=== PATIENT | female | born 1985 | race Two or more races ===

== ENCOUNTER 2020-04-09 17:58 | Observation (INO) | payer MEDICAID ==
[~2020-04-09] VITALS: Ht 160 cm; Wt 66.7 kg
[~2020-04-09 17:58] MED LIST: PREN-96 PO
[2020-04-09 19:09] LABS: Urine Bacteria NONE SEEN /hpf (None Seen); Urine Blood 1+ /uL (Negative); Urine Mucus FEW (None Seen); Urine Specific Gravity 1.009 (1.001-1.035); Urine WBC 36 /hpf (0 - 5)
== END 2020-04-09 19:30 | disposition home or self-care (01) ==
LOC: LDRP 17:58
PROVIDERS: ADMIT Obstetrics & Gynecology; ATTEND Obstetrics & Gynecology
DX: O62.9 Abnormality of forces of labor, unspecified (principal); O46.93 Antepartum hemorrhage, unspecified, third trimester; O36.8130 Decreased fetal movements, third trimester, not applicable or unspecified; Z3A.39 39 weeks gestation of pregnancy
CPT/HCPCS: 59025; 76818; 81001; 81002; G0378

== ENCOUNTER 2020-04-10 06:10 | Inpatient (IN) | payer MEDICAID ==
[~2020-04-10] VITALS: Ht 160 cm; Wt 66.8 kg
[2020-04-10] MEDS ORDERED: LACTATED RINGER'S 1,000 ML IV SCH (06:29)
[2020-04-10] MEDS ORDERED: LACT. RINGERS/OXYTOCIN 20UNITS 1,000 ML IV SCH ×2 (06:29→09:52)
[2020-04-10] MEDS ORDERED: WITCH HAZEL-GLYCERIN PAD TOP PRN ×2 (06:30→06:45)
[2020-04-10] MEDS ORDERED: PHISODERM TOP SOLN 240ML BTL TOP PRN ×2 (06:30→06:45)
[2020-04-10] MEDS ORDERED: LIDOCAINE 2%HCL (LOCAL ANESTH.) INJ 20ML MDV ID ONE (06:30)
[2020-04-10] MEDS ORDERED: NALBUPHINE HCL 10 MG/1ml INJECTION IV PRN (06:30)
[2020-04-10] MEDS ORDERED: PENICILLIN G POT 5MIL/D5 50ML 50 ML IV ONE (06:30)
[2020-04-10] MEDS ORDERED: DERMOPLAST 60ML BOTTLE TOP PRN (06:30)
[2020-04-10] MEDS ORDERED: METHYLERGONOVINE MALEATE 0.2 MG/ML AMP IM PRN (06:45)
[2020-04-10] MEDS ORDERED: CARBOPROST TROMETHAMINE 250 MCG/1ML VIAL IM PRN (06:45)
[2020-04-10] MEDS ORDERED: LACT. RINGERS/OXYTOCIN 20UNITS 1,000 ML IV PRN ×2 (07:00)
[2020-04-10 07:30] LABS: Basophils # (auto) 0.1 10 ^3/uL (0-0.2); Basophils % (auto) 0.6 % (0.0-2.0); Eosinophils # (auto) 0.1 10 ^3/uL (0-0.8); Eosinophils % (auto) 1.1 % (0.0-7.0); Hematocrit 36.6 % (36.0-46.0); Hemoglobin 12.5 g/dL (12.2-16.2); Lymphocytes # (auto) 1.1 10 ^3/uL (0.4-5.4); Lymphocytes % (auto) 13.5 % (10.0-50.0); Mean Corpuscular Hemoglobin 32.4 pg (28.0-32.0); Mean Corpuscular Hgb Conc. 34.1 g/dL (32.0-36.0); Mean Corpuscular Volume 95.2 fL (80.0-100.0); Monocytes # (auto) 0.6 10 ^3/uL (0-1.3); Monocytes % (auto) 7.7 % (0.0-12.0); Neutrophils # (auto) 6.3 10 ^3/uL (1.6-8.6); Neutrophils % (auto) 77.1 % (37.0-80.0); Nucleated Red Blood Cells % 0.2 %; Platelet Count (auto) 227 10^3/uL (140-450); Red Blood Cells 3.84 10^6/uL (4.0-5.20); Red Cell Distribution Width 13.7 % (11.8-14.3); White Blood Cell 8.2 10^3/uL (4.4-10.8)
[2020-04-10 07:36] LABS: Urine Bacteria NONE SEEN /hpf (None Seen); Urine Blood 1+ /uL (Negative); Urine Specific Gravity 1.012 (1.001-1.035); Urine WBC 6 /hpf (0 - 5)
[2020-04-10 07:44] LABS: INR 0.96 (0.9-1.15); Partial Thromboplastin Time 25.5 sec (23.0-31.2)
[2020-04-10 07:46] LABS: Albumin 2.8 g/dL (3.4-5.0); Calcium 8.7 mg/dL (8.5-10.1); Potassium 3.5 mmol/L (3.5-5.1)
[2020-04-10 07:47] LABS: Alcohol, Urine < 3.0 mg/dL (0-10); Amphetamine Screen, Urine NEGATIVE (NEGATIVE); Barbiturate Scree,Urine NEGATIVE (NEGATIVE); Benzodiazephine Screen, Urine NEGATIVE (NEGATIVE); Cannabinoid Screen, Urine NEGATIVE (NEGATIVE); Cocaine Screen, Urine NEGATIVE (NEGATIVE); Opiate Scree,Urine NEGATIVE (NEGATIVE); Phencyclidine Screen, Urine NEGATIVE (NEGATIVE)
[2020-04-10 07:50] LABS: BUN/Creatinine Ratio 16.1; Bilirubin, Total 0.7 mg/dL (0.2-1.0); Total Protein 6.6 g/dL (6.4-8.2)
[2020-04-10] MEDS ORDERED: ACETAMINOPHEN 325 MG TAB PO PRN (08:15)
[2020-04-10] MEDS ORDERED: IBUPROFEN 600 MG TAB PO PRN (08:15)
[2020-04-10] MEDS ORDERED: miSOPROStol 100 mcg TAB ONE (08:19)
[2020-04-10] MEDS ORDERED: miSOPROStol 100 mcg TAB SL ONE (09:30)
[2020-04-10] MEDS ORDERED: miSOPROStol 100 mcg TAB PR ONE (09:30)
[2020-04-10] MEDS ORDERED: ONDANSETRON HCL 4 MG/2 ML VIAL IV PRN (09:45)
[2020-04-10 14:30] VITALS: BP 96/56
--- NOTE | 2020-04-10 15:24 | NUR ---
Received order from Dr. Yoder to remove duarte catheter and PT may ambulate.
--- NOTE | 2020-04-10 15:45 | NUR ---
Duarte catheter dc'd Order to discontinue duarte catheter. Duarte dc'd with clean technique following deflation of balloon. Patient tolerated well with no complaints of pain. Continue care.
[2020-04-10 19:00] VITALS: BP 104/65
[2020-04-10 23:00] VITALS: BP 118/67
[2020-04-11 03:00] VITALS: BP 105/55
[2020-04-11 05:06] LABS: RPR Non Reactive (Non Reactive)
[2020-04-11 07:10] VITALS: BP 94/56
[2020-04-11 11:00] VITALS: BP 101/58
[2020-04-11 15:00] VITALS: BP 106/57
--- NOTE | 2020-04-11 15:01 | NUR ---
Discharge: Discharge instructions given as ordered. [facility], [facility] handout from [facility], [facility] provide and discussed in detail with patient. Pt encouraged to follow up with maternal health 04/[address] Yoder. All questions and concerns addressed. Patient verbalized understanding. Medication reconciliation completed and copy given to patient. All required/requested vaccines given and copies of vaccinations given to patient. Patient encouraged to prepare to depart unit. Patient states her will be able to pick her up between 4 and 4:30pm
--- NOTE | 2020-04-11 15:28 | NUR ---
Iv removed, catheter intact, pressure dressing applied.
--- NOTE | 2020-04-11 16:50 | NUR ---
Discharge: Patient ambulated off the unit to vehicle with all personal belongings, accompanied by staff and family member. No distress noted at time of departure, no adverse changes in status since initial assessment.
== END 2020-04-11 16:50 | disposition home or self-care (01) | DRG 560 ==
LOC: LDRP 06:10 → OBSVTOIN 06:10 → LDRP 08:12
PROVIDERS: ADMIT Obstetrics & Gynecology; ATTEND Obstetrics & Gynecology
PROC: 10E0XZZ Delivery of Products of Conception, External Approach (ICD-10-PCS; principal; 2020-04-10)
DX: O69.81X0 Labor and delivery complicated by cord around neck, without compression, not applicable or unspecified (principal); Z37.0 Single live birth; Z3A.39 39 weeks gestation of pregnancy; O62.3 Precipitate labor
CPT/HCPCS: 36415; 59025; 59409; 76818; 80053; 80307; 81001; 81002; 84112; 85025; 85610; 85730; 86592; 86850; 86870; 86900; 86901; 94760; 96360; 96361; 96365; 96366; 96372; 96374; G0378; J2405; J2590

== ENCOUNTER 2022-02-06 03:00 | Inpatient (IN) | payer MEDICAID ==
[~2022-02-06] VITALS: Ht 160 cm; Wt 64.9 kg
[2022-02-06] MEDS ORDERED: PROMETHAZINE HCL 25 MG/ML 1ML IV PRN (06:00)
[2022-02-06] MEDS ORDERED: BUTORPHANOL TARTRATE 2 MG/1 ML VIAL IV PRN ×2 (06:00)
[2022-02-06] MEDS ORDERED: PENICILLIN G POT 5MIL/D5 50ML 50 ML IV ONE (06:00)
[2022-02-06] MEDS ORDERED: LIDOCAINE 2%HCL (LOCAL ANESTH.) INJ 10ml MDV IJ PRN (06:00)
[2022-02-06] MEDS ORDERED: PHISODERM TOP SOLN 240ML BTL TOP PRN (06:00)
[2022-02-06] MEDS ORDERED: WITCH HAZEL-GLYCERIN PAD TOP PRN (06:00)
[2022-02-06] MEDS ORDERED: DERMOPLAST 60ML BOTTLE TOP PRN (06:00)
[2022-02-06] MEDS ORDERED: miSOPROStol 50 MCG per PRE-CUT 1/2 TAB PO PRN (06:00)
[2022-02-06 06:21] LABS: Urine Bacteria NONE SEEN /hpf (None Seen); Urine Blood TRACE /uL (Negative); Urine Specific Gravity 1.003 (1.001-1.035); Urine WBC 4 /hpf (0 - 5)
[2022-02-06 06:25] LABS: Alcohol, Urine < 3.0 mg/dL (0-10); Amphetamine Screen, Urine NEGATIVE (NEGATIVE); Barbiturate Scree,Urine NEGATIVE (NEGATIVE); Benzodiazephine Screen, Urine NEGATIVE (NEGATIVE); Cannabinoid Screen, Urine NEGATIVE (NEGATIVE); Cocaine Screen, Urine NEGATIVE (NEGATIVE); Opiate Scree,Urine NEGATIVE (NEGATIVE); Phencyclidine Screen, Urine NEGATIVE (NEGATIVE)
[2022-02-06] MEDS: LACTATED RINGER'S 1,000 ML IV SCH ×3 (06:36→22:00)
[2022-02-06 07:07] LABS: Basophils # (auto) 0 10 ^3/uL (0-0.2); Basophils % (auto) 0.2 % (0.0-2.0); Eosinophils # (auto) 0.1 10 ^3/uL (0-0.8); Eosinophils % (auto) 0.9 % (0.0-7.0); Hematocrit 36.6 % (36.0-46.0); Hemoglobin 12.7 g/dL (12.2-16.2); Lymphocytes # (auto) 1.2 10 ^3/uL (0.4-5.4); Lymphocytes % (auto) 13.4 % (10.0-50.0); Mean Corpuscular Hemoglobin 33.8 pg (28.0-32.0); Mean Corpuscular Hgb Conc. 34.8 g/dL (32.0-36.0); Monocytes # (auto) 0.8 10 ^3/uL (0-1.3); Monocytes % (auto) 8.2 % (0.0-12.0); Neutrophils # (auto) 7.1 10 ^3/uL (1.6-8.6); Neutrophils % (auto) 77.3 % (37.0-80.0); Red Blood Cells 3.77 10^6/uL (4.0-5.20); Red Cell Distribution Width 13.8 % (11.8-14.3); White Blood Cell 9.2 10^3/uL (4.4-10.8)
[2022-02-06] MEDS ORDERED: LACT. RINGERS/OXYTOCIN 20UNITS 1,000 ML IV SCH (07:15)
[2022-02-06] MEDS ORDERED: METHYLERGONOVINE MALEATE 0.2 MG/ML AMP IM PRN (07:15)
[2022-02-06] MEDS ORDERED: CARBOPROST TROMETHAMINE 250 MCG/1ML VIAL IM PRN (07:15)
[2022-02-06] MEDS ORDERED: TERBUTALINE SULFATE 1 MG/ML 1ML VIAL SC PRN (07:15)
[2022-02-06] MEDS ORDERED: miSOPROStol 100 mcg TAB SL PRN (07:15)
[2022-02-06] MEDS ORDERED: miSOPROStol 100 mcg TAB PR PRN (07:15)
[2022-02-06] MEDS ORDERED: LACT. RINGERS/OXYTOCIN 20UNITS 500 ML IV ONE ×2 (07:15→07:45)
[2022-02-06 07:20] LABS: Albumin 2.7 g/dL (3.4-5.0); BUN/Creatinine Ratio 9.1; Calcium 8.5 mg/dL (8.5-10.1); Potassium 3.5 mmol/L (3.5-5.1)
[2022-02-06 07:26] LABS: Bilirubin, Total 0.7 mg/dL (0.2-1.0); Total Protein 6.5 g/dL (6.4-8.2)
[2022-02-06 07:30] LABS: INR 0.98 (0.9-1.15); Partial Thromboplastin Time 25.3 sec (23.6-33.0)
[2022-02-06] MEDS ORDERED: PENICILLIN G POTASSIUM 2,500,000 UNITS in D5W 5% 50 ML IV SCH (10:00)
[2022-02-06] MEDS: DIPHENOXYLATE W/ATROPINE 2.5 MG TAB PO SCH ×2 (10:00→22:00)
[2022-02-06] MEDS ORDERED: ACETAMINOPHEN 325 MG TAB PO PRN (13:00)
[2022-02-06] MEDS ORDERED: ONDANSETRON ODT 4 MG TAB PO PRN (13:00)
[2022-02-06] MEDS ORDERED: IBUPROFEN 600 MG TAB PO PRN (13:00)
[2022-02-06] MEDS ORDERED: RHO (D) IMMUNE GLOBULIN 300 MCG INJ IM ONE (13:30)
[2022-02-06] MEDS: ceFAZolin 1GM/50ML 50 ML IV SCH ×2 (13:37→22:04)
[2022-02-06 15:28] VITALS: BP 95/60
[2022-02-06 19:30] VITALS: BP 90/57
[2022-02-06 23:00] VITALS: BP 102/64
[2022-02-07 03:00] VITALS: BP 97/56
[2022-02-07] MEDS: ceFAZolin 1GM/50ML 50 ML IV SCH (05:35)
[2022-02-07] MEDS: LACTATED RINGER'S 1,000 ML IV SCH (06:00)
[2022-02-07 06:59] VITALS: BP 102/59
[2022-02-07 08:06] LABS: RPR Non Reactive (Non Reactive)
[2022-02-07] MEDS: DIPHENOXYLATE W/ATROPINE 2.5 MG TAB PO SCH (10:00)
[2022-02-07 11:02] VITALS: BP 104/66
== END 2022-02-07 13:47 | disposition home or self-care (01) | DRG 560 ==
LOC: LDRP 03:00 → OBSVTOIN 05:45 → LDRP 06:00
PROVIDERS: ADMIT Obstetrics & Gynecology; ATTEND Obstetrics & Gynecology
PROC: 10E0XZZ Delivery of Products of Conception, External Approach (ICD-10-PCS; principal; 2022-02-06)
PROC: 3E0P7VZ Introduction of Hormone into Female Reproductive, Via Natural or Artificial Opening (ICD-10-PCS; 2022-02-06)
PROC: 3E0DXGC Introduction of Other Therapeutic Substance into Mouth and Pharynx, External Approach (ICD-10-PCS; 2022-02-06)
DX: O26.893 Other specified pregnancy related conditions, third trimester (principal); Z37.0 Single live birth; Z20.822 Contact with and (suspected) exposure to COVID-19; Z3A.37 37 weeks gestation of pregnancy; Z67.41 Type O blood, Rh negative
CPT/HCPCS: 36415; 59025; 59409; 76815; 80053; 80307; 81001; 81002; 84112; 85025; 85610; 85730; 86592; 86850; 86900; 86901; 86920; 90384; 94760; 96360; 96361; 96365; 96366; 96372; G0378; J0690; J2001; J2540; J2590; J7060

== ENCOUNTER 2024-09-17 14:25 | Inpatient (IN) | payer MEDICAID ==
[~2024-09-17] VITALS: Ht 160 cm; Wt 59.9 kg
[2024-09-17] MEDS ORDERED: PENICILLIN G POT 5MIL/D5 50ML 50 ML IV ONE (15:00)
[2024-09-17] MEDS ORDERED: LIDOCAINE 2%HCL (LOCAL ANESTH.) INJ 20ML MDV IJ PRN ×2 (15:00→20:15)
[2024-09-17] MEDS ORDERED: PHISODERM TOP SOLN 240ML BTL TOP PRN (15:00)
[2024-09-17] MEDS ORDERED: DERMOPLAST 60ML BOTTLE TOP PRN (15:00)
[2024-09-17] MEDS ORDERED: WITCH HAZEL-GLYCERIN PAD TOP PRN (15:00)
--- NOTE | 2024-09-17 15:34 | DVH ---
BIOPHYSICAL PROFILE HISTORY: presentation Comparison Study: None TECHNIQUE: Multiple real-time grayscale sonographic images through the gravid uterus of the fetus wi th duplex Doppler color flow and M-mode spectral analysis FINDINGS/IMPRESSION: Single live fetus in cephalic presentation. heart rate 142 beats per minute.
[2024-09-17 17:08] LABS: Basophils # (auto) 0 10 ^3/uL (0-0.2); Basophils % (auto) 0.5 % (0.0-2.0); Eosinophils # (auto) 0.1 10 ^3/uL (0-0.8); Eosinophils % (auto) 1.2 % (0.0-7.0); Hematocrit 34.3 % (36.0-46.0); Hemoglobin 11.5 g/dL (12.2-16.2); Lymphocytes % (auto) 11.5 % (10.0-50.0); Mean Corpuscular Hemoglobin 30.8 pg (28.0-32.0); Mean Corpuscular Hgb Conc. 33.4 g/dL (32.0-36.0); Mean Corpuscular Volume 92.2 fL (80.0-100.0); Monocytes # (auto) 1.1 10 ^3/uL (0-1.3); Monocytes % (auto) 12.7 % (0.0-12.0); Neutrophils # (auto) 6.2 10 ^3/uL (1.6-8.6); Neutrophils % (auto) 74.1 % (37.0-80.0); Nucleated Red Blood Cells % 0.1 %; Platelet Count (auto) 291 10^3/uL (140-450); Red Blood Cells 3.72 10^6/uL (4.0-5.20); Red Cell Distribution Width 14.8 % (11.8-14.3); White Blood Cell 8.4 10^3/uL (4.4-10.8)
[2024-09-17 17:09] LABS: Urine Bacteria None Seen /hpf (None Seen)
[2024-09-17 17:23] LABS: INR 0.92 (0.9-1.15); Partial Thromboplastin Time 25.7 SEC (24.5-34.5); Prothrombin Time 9.8 sec (9.3-11.8)
[2024-09-17 17:26] LABS: Alanine Aminotransferase < 9 U/L (7-40); Albumin 3.8 g/dL (3.2-4.8); Alkaline Phosphatase 831 U/L (46-116); Anion Gap 11 (5-15); Aspartate Aminotransferase 13 U/L (13-40); BUN/Creatinine Ratio 17.5 (10.0-20.0); Bilirubin, Total 0.6 mg/dL (0.2-1.0); Blood Urea Nitrogen 10 mg/dL (9-23); Carbon Dioxide 20 mmol/L (20-31); Chloride 108 mmol/L (98-107); Glucose 87 mg/dL (74-106); Potassium 3.7 mmol/L (3.5-5.1); Sodium 139 mmol/L (136-145); Total Protein 6.1 g/dL (5.7-8.2)
[2024-09-17 17:27] LABS: Calcium 10.7 mg/dL (8.7-10.4)
[2024-09-17 17:29] LABS: Urine Blood Negative /uL (Negative); Urine Budding Yeast OCCASIONAL /hpf (None Seen); Urine Clarity Clear (Clear); Urine Color Light-Yellow (Yellow); Urine Protein, UAD Negative (Negative); Urine Specific Gravity 1.008 (1.001-1.035); Urine Squamous Epithelial Cell FEW /hpf (<5); Urine Urobilinogen Normal (Negative); Urine WBC 29 /HPF (0-5); Urine WBC Clumps PRESENT /hpf (None Seen); Urine pH 6.5 (5.0-9.0)
[2024-09-17 17:53] LABS: Amphetamine Screen, Urine Neg (NEGATIVE); Barbiturate Scree,Urine Neg (NEGATIVE); Benzodiazephine Screen, Urine Neg (NEGATIVE); Cannabinoid Screen, Urine Neg (NEGATIVE); Cocaine Screen, Urine Neg (NEGATIVE); Opiate Scree,Urine Neg (NEGATIVE); Phencyclidine Screen, Urine Neg (NEGATIVE)
[2024-09-17] MEDS ORDERED: PENICILLIN G POTASSIUM 2,500,000 UNITS in D5W 5% 50 ML IV SCH (19:00)
--- NOTE | 2024-09-17 19:33 | DVH ---
EXAM: US OB ULTRASOUND COMP GTR 14 WKS CLINICAL HISTORY: low NATY, EFW COMPARISON: [Comparison] TECHNIQUE: Grayscale, color-flow Doppler, and spectral Doppler ultrasound of the pelvis is performed by transabdominal technique. Findings: Single live intrauterine in vertex presentation with heart rate of 148 bpm. Cervical os appears closed and measures 4.4 cm in length. Placenta is anterior in location without ev idence of previa or abruption. Limited evaluation of anatomy. Estimated gestational age 32 weeks 3 days based on parameters which include biparietal diameter 7.9 cm, head circumference 29.9 cm, abdominal circumference 30.1 cm, and femur length 5.[address] ratios within normal limits. Estimated weight 2062 g (4 lbs 9 oz). Amniotic fluid is decreased with NATY 2.5 cm and MVP 1.4 cm. Impression: 1. Single live intrauterine in vertex presentation with heart rate of 148 bpm. 2. Estimated gestational age 32 weeks 3 days with estimated date of confinement 11/09/2024. 3. Oligohydramnios. NATY 2.5 cm and MVP 1.4 cm
[2024-09-17] MEDS ORDERED: miSOPROStol 50 MCG per PRE-CUT 1/2 TAB PO PRN (20:15)
[2024-09-17] MEDS ORDERED: NALBUPHINE HCL 10 MG/1ml INJECTION IV PRN (20:15)
--- NOTE | 2024-09-17 20:26 | DVHHP2 ---
OB CC & HPI Date Date of Admission: Sep 17, 2024 Patient Identification: : 10 Para: 7 EDC: Oct 14, 2024 Chief Complaints: Reason for admission: induction of labor Indication for induction: other (IUGR/Oligohydramnios) History of Present Complaints 39y female, , P:7 SAB:2. IUP 36.1 wk dated by 12 wk US. AMA, Rh neg. PNL care w/ DR TORRES [facility]. Sent for US today showing IUGR EFW in 5th percentile and severe Oligohydramnios, NATY 2.5cm Patient denies PROM, denies pain, reports normal movement. Has not had any other complications this . Past Medical History Cardiac: No pertinent Hx Pulmonary: No pertinent Hx Central Nervous System: No pertinent Hx GI: No pertinent Hx Hemotology/Oncology: No pertinent Hx Hepatobiliary: No pertinent Hx Psychiatric: No pertinent Hx Musculoskeletal: No pertinent Hx Rheumotologic: No pertinent Hx Infectious Disease: No peritnent Hx ENT: No pertinent Hx Renal/: No pertinent Hx Endocrine: No pertinent Hx Dermatology: No pertinent Hx Past Surgical History: No pertinent Hx OB History OB History Care: Good Care Ultrasounds: Normal mid trimester US Obstetrical Complications: Growth Restriction Medical Complications: None Allergies: Coded Allergies: NO KNOWN ALLERGIES (Unverified , 11/28/15) Home Meds Reported Medications Vit W/ Ferrous Fumara ( One Daily) Daily Tab, 1 TAB PO DAILY, #90 TAB 3 Refills 11/27/15 Current Medications Current Medications Medications (Trade) Dose Ordered Sig/Shaw Route PRN Reason Start Time Stop Time Status Last Admin Lactated Ringer's 1,000 ml @ 125 mls/hr Q8H IV 09/17/24 15:00 Penicillin G Potassium [id number] units/Dextrose 50 ml @ 100 mls/hr Q4H IV 09/17/24 19:00 09/17/24 20:20 DC Dee Dias (Tucks) 1 pad PRN PRN TOP PERINEAL AREA DISCOMFORT 09/17/24 15:00 Sodium Lauryl Sulfate (Phisoderm) 240 ml PRN PRN TOP PERINEAL AREA DISCOMFORT 09/17/24 15:00 Benzocaine (Dermoplast) 1 applic PRN PRN TOP PERINEAL AREA DISCOMFORT 09/17/24 15:00 Misoprostol (Cytotec) 50 mcg Q4HPRN PRN PO CERVICAL RIPENING 09/17/24 15:00 Lidocaine HCl (Xylocaine) 20 ml ONCE PRN IJ PERINEAL AREA DISCOMFORT 09/17/24 15:00 Lactated Ringer's 1,000 ml @ 125 mls/hr Q8H IV 09/17/24 20:15 Nalbuphine HCl (Nubain) 10 mg Q4HP PRN IV MODERATE PAIN (4-6 PAIN SCALE) 09/17/24 20:15 Penicillin G Potassium [id number] units/Dextrose 50 ml @ 100 mls/hr Q4H IV 09/18/24 00:30 Witch Larissa (Tucks) 1 pad PRN PRN TOP PERINEAL AREA DISCOMFORT 09/17/24 20:15 Sodium Lauryl Sulfate (Phisoderm) 240 ml PRN PRN TOP PERINEAL AREA DISCOMFORT 09/17/24 20:15 Benzocaine (Dermoplast) 1 applic PRN PRN TOP PERINEAL AREA DISCOMFORT 09/17/24 20:15 Misoprostol (Cytotec) 50 mcg Q4HPRN PRN PO CERVICAL RIPENING 09/17/24 20:15 Lidocaine HCl (Xylocaine) 20 ml ONCE PRN IJ PERINEAL AREA DISCOMFORT 09/17/24 20:15 Family & Social History Family/Social History Rubella: immune RPR/VDRL: Negative GBS Status: Unknown HBsAG: Negative Review of Systems Constitutional: No symptom reported Ears, Nose, & Throat: No symptom reported Eyes: No symptom reported Pulmonary/Respiratory: No symptom reported Cardiovascular: No symptom reported Gastrointestinal: No symptom reported Genitourinary: No symptom reported Musculoskeletal: No symptom reported Skin: No symptom reported Psychiatric: No symptom reported Endocrine: No symptom reported Hemotologic/Lymphatic: No symptom reported OB Admission Exam Physical Exam HEENT: NCAT Heart: Rhythm Normal Lungs: Clear Extremities: Normal Reflexes: Normal Pelvic Exam: RN exam //-3 VTX by US Heart Rate: 130's Accelerations: Accelerations Present Decelerations: No Decelerations Short Term Variability: Present Physical Medicine Teacher Variability: Average (6-25) Contractions on Admission: >10 Minutes Apart Intensity: Mild OB Plan Plan Admitting Diagnosis: Late 36.1 wk, induction of labor for IUGR and Oligohydramnios AMA Grand-multiparity Plan: Induction Induction Methd: Misoprostol protocol Other Plan: Admit for labor and delivery Induction plan w/ Cytotec, and /or Pitocin discussed w/ patient I reviewed the US findings and the medical necessity for labor induction at 36 wk Patient verbalized understanding and agrees to proceed. Informed consent obtained. Visit Coding OBGYN Date of Service: Sep 17, 2024 Billing Provider: ISAAC QUINTANA DO POLY OPERATOR Common Visit Codes: [id number] OBS CARE (HIGH) ISAAC QUINTANA DO Sep 17, 2024 20:26
[2024-09-17] MEDS: LACTATED RINGER'S 1,000 ML IV SCH ×2 (21:04→23:00)
[2024-09-17] MEDS: miSOPROStol 50 MCG per PRE-CUT 1/2 TAB PO PRN (21:05)
[2024-09-17] MEDS: PENICILLIN G POT 5MIL/D5 50ML 50 ML IV ONE (21:55)
[2024-09-17] MEDS: TERBUTALINE SULFATE 1 MG/ML 1ML VIAL SC STA (23:03)
[2024-09-18] MEDS: PENICILLIN G POTASSIUM 2,500,000 UNITS in D5W 5% 50 ML IV SCH (02:30)
[2024-09-18] MEDS ORDERED: TERBUTALINE SULFATE 1 MG/ML 1ML VIAL SC PRN (03:30)
[2024-09-18] MEDS: LACT. RINGERS/OXYTOCIN 20UNITS 1,000 ML IV SCH (04:01)
[2024-09-18] MEDS ORDERED: TRANEXAMIC ACID 1,000 MG in SODIUM CHL 0.9% 100 ML IV ONE (06:30)
[2024-09-18] MEDS ORDERED: miSOPROStol 100 mcg TAB PR PRN (06:30)
[2024-09-18] MEDS ORDERED: miSOPROStol 100 mcg TAB SL PRN (06:30)
[2024-09-18] MEDS ORDERED: CARBOPROST TROMETHAMINE 250 MCG/1ML VIAL IM PRN (06:30)
--- NOTE | 2024-09-18 07:14 | DVHPN2 ---
OB Labor Progress Note Date and Time Seen Date Seen: Sep 18, 2024 Time Seen: 07:12 Subjective Patient reports: No new complaints Subjective Comment Mild pain from contractions Objective Vital Signs Afeb VS stable Monitoring Method Monitoring Method: External Heart Rate Heart Rate Baseline: 135 Heart Rate Variability: Moderate Presence of FHR Accelerations: Yes Presence of FHR Decelerations: No Contractions Contractions Frequency: Other (3 in 10 mins) Contractions Intensity: Mild Contractions Resting Tone: Relaxed Membranes Membranes: Intact Vaginal Exam Vag Exam Deferred: Yes Medications Medications - Pitocin: Yes Lab Results Lab Results Current Medications Medications (Trade) Dose Ordered Sig/Shaw Start Time Stop Time Status Last Admin Dose Admin Lactated Ringer's 1,000 ml @ 125 mls/hr Q8H 09/17/24 15:00 Penicillin G Potassium [id number] units/Dextrose 50 ml @ 100 mls/hr Q4H 09/17/24 19:00 09/17/24 20:20 DC Dee Dias (Bharats) 1 pad PRN PRN 09/17/24 15:00 Sodium Lauryl Sulfate (Phisoderm) 240 ml PRN PRN 09/17/24 15:00 Benzocaine (Dermoplast) 1 applic PRN PRN 09/17/24 15:00 Misoprostol (Cytotec) 50 mcg Q4HPRN PRN 09/17/24 15:00 09/17/24 21:05 50 MCG Lidocaine HCl (Xylocaine) 20 ml ONCE PRN 09/17/24 15:00 Lactated Ringer's 1,000 ml @ 125 mls/hr Q8H 09/17/24 20:15 09/18/24 01:53 125 MLS/HR Nalbuphine HCl (Nubain) 10 mg Q4HP PRN 09/17/24 20:15 Penicillin G Potassium 50 ml @ 100 mls/hr ONCE ONCE 09/17/24 20:30 09/17/24 20:59 DC 09/17/24 21:55 100 MLS/HR Penicillin G Potassium [id number] units/Dextrose 50 ml @ 100 mls/hr Q4H 09/18/24 00:30 09/18/24 06:25 100 MLS/HR Dee Dias (Tucks) 1 pad PRN PRN 09/17/24 20:15 Sodium Lauryl Sulfate (Phisoderm) 240 ml PRN PRN 09/17/24 20:15 Benzocaine (Dermoplast) 1 applic PRN PRN 09/17/24 20:15 Misoprostol (Cytotec) 50 mcg Q4HPRN PRN 09/17/24 20:15 Lidocaine HCl (Xylocaine) 20 ml ONCE PRN 09/17/24 20:15 Terbutaline Sulfate (Brethine Inj) 0.25 mg ONCE STAT 09/17/24 22:38 09/17/24 22:48 DC 09/17/24 23:03 0.25 MG Oxytocin 1,000 ml @ 6 ml/hr Q24H 09/18/24 03:30 09/18/24 04:01 6 ML/HR Terbutaline Sulfate (Brethine Inj) 0.25 mg ONCE PRN 09/18/24 03:30 Oxytocin 500 ml @ 999 mls/hr Q31M ONCE 09/18/24 03:30 09/18/24 04:00 DC Oxytocin 500 ml @ 125 mls/hr Q4H ONCE 09/18/24 04:00 09/18/24 07:59 Carboprost Tromethamine (Hemabate) 250 mcg Q20M PRN 09/18/24 06:30 09/18/24 07:11 DC Methylergonovine Maleate (Methergine) 0.2 mg Q8HP PRN 09/18/24 06:30 09/20/24 06:29 Misoprostol (Cytotec) 200 mcg ONCE PRN 09/18/24 06:30 09/18/24 07:16 DC Misoprostol (Cytotec) 600 mcg ONCE PRN 09/18/24 06:30 09/18/24 07:16 DC Diphenoxylate HCl/ Atropine (Lomotil Tablet) 5 mg Q12HR 09/18/24 10:00 Tranexamic Acid 1000 mg/Sodium Chloride 110 ml @ 300 mls/hr ONCE ONCE 09/18/24 06:30 09/18/24 07:16 DC Laboratory Tests Test 09/17/24 16:19 09/17/24 16:00 Range/Units White Blood Count 8.4 4.4-10.8 10^3/uL Red Blood Count 3.72 L 4.0-5.20 10^6/uL Hemoglobin 11.5 L 12.2-16.2 g/dL Hematocrit 34.3 L 36.0-46.0 % Mean Corpuscular Volume 92.2 80.0-100.0 fL Mean Corpuscular Hemoglobin 30.8 28.0-32.0 pg Mean Corpuscular Hemoglobin Concent 33.4 32.0-36.0 g/dL Red Cell Distribution Width 14.8 H 11.8-14.3 % Platelet Count 291 140-450 10^3/uL Mean Platelet Volume 7.6 6.9-10.8 fL Neutrophils (%) (Auto) 74.1 37.0-80.0 % Lymphocytes (%) (Auto) 11.5 10.0-50.0 % Monocytes (%) (Auto) 12.7 H 0.0-12.0 % Eosinophils (%) (Auto) 1.2 0.0-7.0 % Basophils (%) (Auto) 0.5 0.0-2.0 % Neutrophils # (Auto) 6.2 1.6-8.6 10 ^3/uL Lymphocytes # (Auto) 1.0 0.4-5.4 10 ^3/uL Monocytes # (Auto) 1.1 0-1.3 10 ^3/uL Eosinophils # (Auto) 0.1 0-0.8 10 ^3/uL Basophils # (Auto) 0 0-0.2 10 ^3/uL Nucleated Red Blood Cells 0.1 % Prothrombin Time 9.8 9.3-11.8 sec Prothrombin Time INR 0.92 0.9-1.15 Activated Partial Thromboplast Time 25.7 24.5-34.5 SEC Sodium Level 139 136-145 mmol/L Potassium Level 3.7 3.5-5.1 mmol/L Chloride Level 108 H 98-107 mmol/L Carbon Dioxide Level 20 20-31 mmol/L Anion Gap 11 5-15 Blood Urea Nitrogen 10 9-23 mg/dL Creatinine 0.57 0.550-1.02 mg/dL Glomerular Filtration Rate Calc 117 >90 mL/min BUN/Creatinine Ratio 17.5 10.0-20.0 Serum Glucose 87 74-106 mg/dL Calcium Level 10.7 H 8.7-10.4 mg/dL Total Bilirubin 0.6 0.2-1.0 mg/dL Aspartate Amino Transferase (AST) 13 13-40 U/L Alanine Aminotransferase (ALT) < 9 7-40 U/L Alkaline Phosphatase 831 H 46-116 U/L Total Protein 6.1 5.7-8.2 g/dL Albumin 3.8 3.2-4.8 g/dL Rapid Plasma Reagin Pending Treponema pallidum Ab (TP-PA) Pending Hepatitis C Antibody Negative Negative Urine Color Light-yellow Yellow Urine Clarity Clear Clear Urine pH 6.5 5.0-9.0 Urine Specific Ucon 1.008 1.001-1.035 Urine Protein Negative Negative Urine Ketones Negative Negative Urine Blood Negative Negative /uL Urine Nitrite Negative Negative Urine Bilirubin Negative Negative Urine Urobilinogen Normal Negative mg/dL Urine Leukocyte Esterase 3+ Negative /uL Urine RBC 1 0 - 4 /hpf Urine WBC Clumps Present None Seen /hpf Urine Microscopic WBC 29 H 0-5 /HPF Urine Squamous Epithelial Cells Few <5 /hpf Urine Bacteria None seen None Seen /hpf Urine Yeast (Budding) Occasional None Seen /hpf Urine Glucose Normal Normal mg/dL Urine Opiates Screen Neg NEGATIVE Urine Fentanyl Screen Neg NEGATIVE Urine Barbiturates Screen Neg NEGATIVE Urine Phencyclidine Screen Neg NEGATIVE Urine Amphetamines Screen Neg NEGATIVE Urine Benzodiazepines Screen Neg NEGATIVE Urine Cocaine Screen Neg NEGATIVE Urine Cannabinoids Screen Neg NEGATIVE Assessment Assessment IUP 36.1 wk, IUGR, Oligohydramnios, AMA Plan Plan Continue labor induction with IV Pitocin Did not tolerate cytotec well , had decelerations currently, status reassuring. Care endorsed to oncoming [facility] team Dr. Yoder/ EDWINA Castillo Plan discussed with: Patient Visit Coding OBGYN Date of Service: Sep 18, 2024 Billing Provider: ISAAC QUINTANA DO AREA DIRECTOR Common Visit Codes: [id number] INP/OBS CARE(MOD) ISAAC QUINTANA DO Sep 18, 2024 07:14
--- NOTE | 2024-09-18 07:37 | DVHPN2 ---
Chief Complaints Patient reports: No new complaints Nursing reports: No new complaints Objective Medications Current Medications Medications (Trade) Dose Ordered Sig/Shaw Route PRN Reason Start Time Stop Time Status Last Admin Benzocaine (Dermoplast) 1 applic PRN PRN TOP PERINEAL AREA DISCOMFORT 09/17/24 15:00 Benzocaine (Dermoplast) 1 applic PRN PRN TOP PERINEAL AREA DISCOMFORT 09/17/24 20:15 Diphenoxylate HCl/ Atropine (Lomotil Tablet) 5 mg Q12HR PO 09/18/24 10:00 Lactated Ringer's 1,000 ml @ 125 mls/hr Q8H IV 09/17/24 15:00 Lactated Ringer's 1,000 ml @ 125 mls/hr Q8H IV 09/17/24 20:15 09/18/24 01:53 Lidocaine HCl (Xylocaine) 20 ml ONCE PRN IJ PERINEAL AREA DISCOMFORT 09/17/24 15:00 Lidocaine HCl (Xylocaine) 20 ml ONCE PRN IJ PERINEAL AREA DISCOMFORT 09/17/24 20:15 Methylergonovine Maleate (Methergine) 0.2 mg Q8HP PRN IM POST HEMORRHAGE 09/18/24 06:30 09/20/24 06:29 Misoprostol (Cytotec) 50 mcg Q4HPRN PRN PO CERVICAL RIPENING 09/17/24 15:00 09/17/24 21:05 Misoprostol (Cytotec) 50 mcg Q4HPRN PRN PO CERVICAL RIPENING 09/17/24 20:15 Nalbuphine HCl (Nubain) 10 mg Q4HP PRN IV MODERATE PAIN (4-6 PAIN SCALE) 09/17/24 20:15 Oxytocin 1,000 ml @ 6 ml/hr Q24H IV 09/18/24 03:30 09/18/24 04:01 Penicillin G Potassium [id number] units/Dextrose 50 ml @ 100 mls/hr Q4H IV 09/18/24 00:30 09/18/24 06:25 Sodium Lauryl Sulfate (Phisoderm) 240 ml PRN PRN TOP PERINEAL AREA DISCOMFORT 09/17/24 15:00 Sodium Lauryl Sulfate (Phisoderm) 240 ml PRN PRN TOP PERINEAL AREA DISCOMFORT 09/17/24 20:15 Terbutaline Sulfate (Brethine Inj) 0.25 mg ONCE PRN SC Uterine tachysystole 09/18/24 03:30 Witch Larissa (Tucks) 1 pad PRN PRN TOP PERINEAL AREA DISCOMFORT 09/17/24 15:00 Witch Larissa (Jovoncks) 1 pad PRN PRN TOP PERINEAL AREA DISCOMFORT 09/17/24 20:15 Others ve-2cm/60/-3 Studies Laboratory Tests 09/17/24 16:19 Test 09/17/24 16:19 Range/Units Serum Glucose 87 74-106 mg/dL Ass/Plan Assessment iol for oligo ama Plan duarte ballon inserted supportive care Visit Coding OBGYN Date of Service: Sep 18, 2024 Billing Provider: VINICIUS TORRES DO EVENT LIGHTING SPECIALIST Common Visit Codes: [id number] SAME DATE (HIGH) EVENT LIGHTING SPECIALIST Consultation Codes: [id number] CONSULT <40MIN EVENT LIGHTING SPECIALIST Procedure Codes: 47030-92- NON-STRESS TEST VINICIUS TORRES DO Sep 18, 2024 07:37
--- NOTE | 2024-09-18 08:32 | DVHPN2 ---
CNM Labor Progress Note Date and Time Seen Date Seen: Sep 18, 2024 Time Seen: 08:00 Subjective Patient reports: No new complaints Subjective Comment Pt reports lower abdominal pressure Objective Vital Signs VSS, see chart Monitoring Method Monitoring Method: External Heart Rate Heart Rate Baseline: 135 Heart Rate Variability: Moderate Presence of FHR Accelerations: Yes Presence of FHR Decelerations: No Are all 5 Components of the FH: Yes Contractions Contractions Frequency: Other (q 4-7 min) Duration of Contraction: 90 Contractions Intensity: Mild Contractions Resting Tone: Relaxed Membranes Membranes: Ruptured (SROM @ 0703) Amniotic Fluid Color: Clear Vaginal Exam Vag Exam Deferred: Yes (FB inserted by Dr Yoder earlier, still in place) Vaginal Exam Dilation: 2 Vaginal Exam Effacement: 50 Vaginal Exam Station: -3 Vaginal Exam Presentation: VTX Vaginal Exam Show: None Medications Medications - Pitocin: No Medication - Epidural: No Lab Results Lab Results Vital Signs Date Time Temp Pulse Resp B/P (MAP) Pulse Ox O2 Delivery O2 Flow Rate FiO2 09/18/24 18:18 76 18 90/52 (65) 09/18/24 16:30 99.0 99.0 09/18/24 15:36 Room Air Current Medications Medications (Trade) Dose Ordered Sig/Shaw Start Time Stop Time Status Last Admin Dose Admin Lactated Ringer's 1,000 ml @ 125 mls/hr Q8H 09/17/24 15:00 09/18/24 13:22 125 MLS/HR Penicillin G Potassium [id number] units/Dextrose 50 ml @ 100 mls/hr Q4H 09/17/24 19:00 09/17/24 20:20 DC Witabiola Larissa (Tucks) 1 pad PRN PRN 09/17/24 15:00 09/18/24 10:18 DC Sodium Lauryl Sulfate (Phisoderm) 240 ml PRN PRN 09/17/24 15:00 09/18/24 10:18 DC Benzocaine (Dermoplast) 1 applic PRN PRN 09/17/24 15:00 09/18/24 10:18 DC Misoprostol (Cytotec) 50 mcg Q4HPRN PRN 09/17/24 15:00 09/18/24 13:31 DC 09/17/24 21:05 50 MCG Lidocaine HCl (Xylocaine) 20 ml ONCE PRN 09/17/24 15:00 Lactated Ringer's 1,000 ml @ 125 mls/hr Q8H 09/17/24 20:15 09/18/24 01:53 125 MLS/HR Nalbuphine HCl (Nubain) 10 mg Q4HP PRN 09/17/24 20:15 09/18/24 14:06 DC Penicillin G Potassium 50 ml @ 100 mls/hr ONCE ONCE 09/17/24 20:30 09/17/24 20:59 DC 09/17/24 21:55 100 MLS/HR Penicillin G Potassium [id number] units/Dextrose 50 ml @ 100 mls/hr Q4H 09/18/24 00:30 09/18/24 13:31 DC 09/18/24 10:23 100 MLS/HR Dee Dias (Tucks) 1 pad PRN PRN 09/17/24 20:15 09/18/24 13:29 1 PAD Sodium Lauryl Sulfate (Phisoderm) 240 ml PRN PRN 09/17/24 20:15 09/18/24 13:29 240 ML Benzocaine (Dermoplast) 1 applic PRN PRN 09/17/24 20:15 09/18/24 13:29 1 APPLIC Misoprostol (Cytotec) 50 mcg Q4HPRN PRN 09/17/24 20:15 09/18/24 10:18 DC Lidocaine HCl (Xylocaine) 20 ml ONCE PRN 09/17/24 20:15 Terbutaline Sulfate (Brethine Inj) 0.25 mg ONCE STAT 09/17/24 22:38 09/17/24 22:48 DC 09/17/24 23:03 0.25 MG Oxytocin 1,000 ml @ 6 ml/hr Q24H 09/18/24 03:30 09/18/24 04:01 6 ML/HR Terbutaline Sulfate (Brethine Inj) 0.25 mg ONCE PRN 09/18/24 03:30 09/18/24 14:06 DC Oxytocin 500 ml @ 999 mls/hr Q31M ONCE 09/18/24 03:30 09/18/24 04:00 DC 09/18/24 13:16 999 MLS/HR Oxytocin 500 ml @ 125 mls/hr Q4H ONCE 09/18/24 04:00 09/18/24 07:59 DC 09/18/24 13:16 125 MLS/HR Carboprost Tromethamine (Hemabate) 250 mcg Q20M PRN 09/18/24 06:30 09/18/24 07:11 DC Methylergonovine Maleate (Methergine) 0.2 mg Q8HP PRN 09/18/24 06:30 09/20/24 06:29 09/18/24 13:20 0.2 MG Misoprostol (Cytotec) 200 mcg ONCE PRN 09/18/24 06:30 09/18/24 07:16 DC Misoprostol (Cytotec) 600 mcg ONCE PRN 09/18/24 06:30 09/18/24 07:16 DC Diphenoxylate HCl/ Atropine (Lomotil Tablet) 5 mg Q12HR 09/18/24 10:00 09/18/24 14:06 DC Tranexamic Acid 1000 mg/Sodium Chloride 110 ml @ 300 mls/hr ONCE ONCE 09/18/24 06:30 09/18/24 07:16 DC Acetaminophen (Tylenol Tablet) 650 mg Q4HP PRN 09/18/24 08:45 09/18/24 13:53 DC Ibuprofen (Motrin Tablet) 600 mg Q6HP PRN 09/18/24 13:30 09/18/24 14:03 600 MG Acetaminophen (Tylenol Tablet) 650 mg Q4HP PRN 09/18/24 13:30 Laboratory Tests Test 09/17/24 16:19 09/17/24 16:00 Range/Units White Blood Count 8.4 4.4-10.8 10^3/uL Red Blood Count 3.72 L 4.0-5.20 10^6/uL Hemoglobin 11.5 L 12.2-16.2 g/dL Hematocrit 34.3 L 36.0-46.0 % Mean Corpuscular Volume 92.2 80.0-100.0 fL Mean Corpuscular Hemoglobin 30.8 28.0-32.0 pg Mean Corpuscular Hemoglobin Concent 33.4 32.0-36.0 g/dL Red Cell Distribution Width 14.8 H 11.8-14.3 % Platelet Count 291 140-450 10^3/uL Mean Platelet Volume 7.6 6.9-10.8 fL Neutrophils (%) (Auto) 74.1 37.0-80.0 % Lymphocytes (%) (Auto) 11.5 10.0-50.0 % Monocytes (%) (Auto) 12.7 H 0.0-12.0 % Eosinophils (%) (Auto) 1.2 0.0-7.0 % Basophils (%) (Auto) 0.5 0.0-2.0 % Neutrophils # (Auto) 6.2 1.6-8.6 10 ^3/uL Lymphocytes # (Auto) 1.0 0.4-5.4 10 ^3/uL Monocytes # (Auto) 1.1 0-1.3 10 ^3/uL Eosinophils # (Auto) 0.1 0-0.8 10 ^3/uL Basophils # (Auto) 0 0-0.2 10 ^3/uL Nucleated Red Blood Cells 0.1 % Prothrombin Time 9.8 9.3-11.8 sec Prothrombin Time INR 0.92 0.9-1.15 Activated Partial Thromboplast Time 25.7 24.5-34.5 SEC Sodium Level 139 136-145 mmol/L Potassium Level 3.7 3.5-5.1 mmol/L Chloride Level 108 H 98-107 mmol/L Carbon Dioxide Level 20 20-31 mmol/L Anion Gap 11 5-15 Blood Urea Nitrogen 10 9-23 mg/dL Creatinine 0.57 0.550-1.02 mg/dL Glomerular Filtration Rate Calc 117 >90 mL/min BUN/Creatinine Ratio 17.5 10.0-20.0 Serum Glucose 87 74-106 mg/dL Calcium Level 10.7 H 8.7-10.4 mg/dL Total Bilirubin 0.6 0.2-1.0 mg/dL Aspartate Amino Transferase (AST) 13 13-40 U/L Alanine Aminotransferase (ALT) < 9 7-40 U/L Alkaline Phosphatase 831 H 46-116 U/L Total Protein 6.1 5.7-8.2 g/dL Albumin 3.8 3.2-4.8 g/dL Rapid Plasma Reagin Pending Treponema pallidum Ab (TP-PA) Pending Hepatitis C Antibody Negative Negative Urine Color Light-yellow Yellow Urine Clarity Clear Clear Urine pH 6.5 5.0-9.0 Urine Specific Wyatt 1.008 1.001-1.035 Urine Protein Negative Negative Urine Ketones Negative Negative Urine Blood Negative Negative /uL Urine Nitrite Negative Negative Urine Bilirubin Negative Negative Urine Urobilinogen Normal Negative mg/dL Urine Leukocyte Esterase 3+ Negative /uL Urine RBC 1 0 - 4 /hpf Urine WBC Clumps Present None Seen /hpf Urine Microscopic WBC 29 H 0-5 /HPF Urine Squamous Epithelial Cells Few <5 /hpf Urine Bacteria None seen None Seen /hpf Urine Yeast (Budding) Occasional None Seen /hpf Urine Glucose Normal Normal mg/dL Urine Opiates Screen Neg NEGATIVE Urine Fentanyl Screen Neg NEGATIVE Urine Barbiturates Screen Neg NEGATIVE Urine Phencyclidine Screen Neg NEGATIVE Urine Amphetamines Screen Neg NEGATIVE Urine Benzodiazepines Screen Neg NEGATIVE Urine Cocaine Screen Neg NEGATIVE Urine Cannabinoids Screen Neg NEGATIVE Assessment Assessment 39yo IUP@36.2wks Induction of Labor for IUGR/Oligohydramnios Category I EFM SROM, clear GBS unknown Plan Plan Discussed starting IV pitocin with pt. Pt agrees with POC. RN to restart pitocin 2nd IV placed 2 units of PRBCs on hold monitoring per order Pain mgmt PRN Frequent position changes in and out of bed encouraged Limit SVE unless necessary Intrauterine resuscitation PRN Anticipate CNM is co-managing care with Dr. Yoder. Plan discussed with: Patient SAGE TOVAR STUDENTMDW Sep 18, 2024 08:32
[2024-09-18] MEDS ORDERED: ACETAMINOPHEN 325 MG TAB PO PRN ×2 (08:45→13:30)
[2024-09-18] MEDS: DIPHENOXYLATE W/ATROPINE 2.5 MG TAB PO SCH (10:00)
[2024-09-18] MEDS: LACT. RINGERS/OXYTOCIN 20UNITS 500 ML IV ONE ×2 (13:16)
[2024-09-18] MEDS: METHYLERGONOVINE MALEATE 0.2 MG/ML AMP IM PRN (13:20)
[2024-09-18] MEDS: WITCH HAZEL-GLYCERIN PAD TOP PRN (13:29)
[2024-09-18] MEDS: DERMOPLAST 60ML BOTTLE TOP PRN (13:29)
[2024-09-18] MEDS: PHISODERM TOP SOLN 240ML BTL TOP PRN (13:29)
[2024-09-18] MEDS: IBUPROFEN 600 MG TAB PO PRN (14:03)
--- NOTE | 2024-09-18 14:43 | LDN2 ---
Labor and Delivery Note Date 09/18/24 Age 39 10 Para 8, now AB x2 SAB EDC 10/14/2024 EGA 36.2 wks Diagnosis IOL for IUGR/Oligohydramnios, then Vaginal Delivery: VTX Vacuum Assisted: No Placenta: Spontaneous Sex: Male Weight 2575g Apgars 8/9 Nuchal Cord Present: No Nuchal Cord Transected: No Amniotic Fluid: Clear Anesthesia none Episiotomy: No Extension: No Lacerations: No Repaired with NA EBL QBL 500 mL Complications None Conditions stable Video Systems Engineer Carson Delivery Summary At 1255 this 39yo now delivered a viable Male by w/ APGARS 8/9. WHITNEY presentation and cord noted around right shoulder. placed skin to skin on pts chest. Cord clamped and cut at 60 seconds. Cord gases and cord blood sent. Venous pH 7.434. IV TXA given. Intact 3-vessel cord placenta delivered spontaneously, Yu, circummarginate placenta with eccentric cord insertion. BP WNL. Pitocin IV bolus started and IM Methergine given. Placenta sent to pathology. Cervix/vagina inspected (intact), intact perineum/labia. Fundus at U, firm, midline, and light lochia. QBL 500mL. VSS. Count correct x2. Patient to care and baby to couplet care, both stable. SAGE TOVAR STUDENTMDW Sep 18, 2024 14:43
[2024-09-18 16:30] VITALS: TEMP 99
[2024-09-18 18:18] VITALS: BP 90/52; PULSE 76; RESP 18
[2024-09-18] MEDS ORDERED: miSOPROStol 100 mcg TAB PO ONE (18:56)
[2024-09-18 19:30] VITALS: BP 90/57; PULSE 64; RESP 16; TEMP 98.4; O2SAT 96
[2024-09-18 23:15] VITALS: BP 97/57; PULSE 64; RESP 16; TEMP 98.5; O2SAT 98
--- NOTE | 2024-09-19 02:20 | DVHPN2 ---
Progress Note Date Seen: Sep 19, 2024 Subjective bleeding is less, eating food without issues, denies lightheaded/dizziness, pain well controlled with oral medications, no concerns with urinating, passing flatus, ambulating well, and bottle feeding well vital signs Vital Sign Date Time Temp Pulse Resp B/P (MAP) Pulse Ox O2 Delivery O2 Flow Rate FiO2 09/18/24 23:15 98.5 64 16 97/57 (70) 98 98.5 09/18/24 19:30 Room Air Total Intake and Output 09/18/24 09/18/24 09/19/24 15:00 23:00 07:00 Output Total 800 ml Balance -800 ml medications Current Medications Medications Dose Ordered Sig/Shaw Route Start Time Stop Time Status Last Admin Dose Admin Dee Larissa 1 pad PRN PRN TOP 09/17/24 20:15 09/18/24 13:29 1 PAD Sodium Lauryl Sulfate 240 ml PRN PRN TOP 09/17/24 20:15 09/18/24 13:29 240 ML Benzocaine 1 applic PRN PRN TOP 09/17/24 20:15 09/18/24 13:29 1 APPLIC Methylergonovine Maleate 0.2 mg Q8HP PRN IM 09/18/24 06:30 09/20/24 06:29 09/18/24 13:20 0.2 MG Ibuprofen 600 mg Q6HP PRN PO 09/18/24 13:30 09/18/24 14:03 600 MG Acetaminophen 650 mg Q4HP PRN PO 09/18/24 13:30 Docusate Sodium 200 mg HS PO 09/18/24 22:00 Prenat Multivit/ Meal Miller/Iron/Folic Ac 1 DAILY PO 09/19/24 10:00 laboratory and microbiology Laboratory Tests 09/17/24 16:19 Test 09/17/24 16:19 Range/Units Serum Glucose 87 74-106 mg/dL Objective VSS Chest: heart sounds normal and lung sounds clear bilaterally Abd: soft, non-tender, fundus at U/firm/midline, active bowel sounds, no rebound or guarding Perineum: intact Ext: Non-tender, No edema, 2+ BLE DTRs Lochia: minimal See lab results Assessment/Plan 39yo now PPD#2 s/p Rh- Rubella Immune Bottlefeeding P: D/C home today Rx sent to pharmacy precautions and preeclampsia warning signs reviewed F/U with Dr. Singletary in OB office in 2 weeks Plan discussed with: Patient, Spouse Visit Coding OBGYN Date of Service: Sep 19, 2024 Billing Provider: MARLIN CAGLE CNM JUNIOR ART DIRECTOR Common Visit Codes: 70491-IFA/OBS DISCH DAY <30MIN MARLIN CAGLE CNM Sep 19, 2024 02:20
[2024-09-19 03:30] VITALS: BP 102/73; PULSE 81; RESP 16; TEMP 98.7; O2SAT 96
[2024-09-19 07:07] LABS: RPR Non Reactive (Non Reactive)
[2024-09-19 08:59] LABS: Basophils # (auto) 0.1 10 ^3/uL (0-0.2); Basophils % (auto) 0.6 % (0.0-2.0); Eosinophils # (auto) 0.2 10 ^3/uL (0-0.8); Eosinophils % (auto) 1.8 % (0.0-7.0); Hematocrit 31.3 % (36.0-46.0); Hemoglobin 10.6 g/dL (12.2-16.2); Lymphocytes # (auto) 1.5 10 ^3/uL (0.4-5.4); Lymphocytes % (auto) 15.6 % (10.0-50.0); Mean Corpuscular Hemoglobin 31.6 pg (28.0-32.0); Mean Corpuscular Hgb Conc. 33.9 g/dL (32.0-36.0); Monocytes % (auto) 10.6 % (0.0-12.0); Neutrophils # (auto) 6.7 10 ^3/uL (1.6-8.6); Neutrophils % (auto) 71.4 % (37.0-80.0); Platelet Count (auto) 291 10^3/uL (140-450); Red Blood Cells 3.36 10^6/uL (4.0-5.20); Red Cell Distribution Width 15.2 % (11.8-14.3); White Blood Cell 9.4 10^3/uL (4.4-10.8)
[2024-09-19] MEDS ORDERED: PRENATAL VITAMIN TAB PO SCH (10:00)
[2024-09-19 11:30] VITALS: BP 105/59; PULSE 76; RESP 16; TEMP 98.2; O2SAT 96
[2024-09-19 15:20] VITALS: BP 107/60; PULSE 70; RESP 16; TEMP 98.3; O2SAT 97
[2024-09-19] MEDS ORDERED: DOCU-265 PO (15:53)
[2024-09-19] MEDS ORDERED: FER325T PO (15:53)
[2024-09-19] MEDS ORDERED: IBU600T PO (15:53)
--- NOTE | 2024-09-19 16:10 | DVHDS2 ---
Obstetrics Discharge Summary Obstetrics Discharge Summary Date of Admission: Sep 17, 2024 Date of Discharge: Sep 19, 2024 Reason For Admission: Induction of Labor (IUGR/Oligohydramnios) Procedures: NST, Ultrasound, Mgmt of Obstetrics Compli Intrapartum Procedures: Spontaneous vaginal deliv Procedures: Hct/date: (09/19/24), Hgb/date: (09/19/24) Operative Complicat: None Discharge Diagnosis: Term -Delivered Discharge Information: Activity (Unrestricted), Diet (Routine), Medications (rx sent), Instructions (Routine), Discharge to (Home), Accompanied by (partner), Discarge date (09/19/24) Visit Coding OBGYN Date of Service: Sep 19, 2024 Billing Provider: MARLIN CAGLE CNM LEASE PURCHASE TRUCK DRIVER Common Visit Codes: 40916-PCS/OBS DISCH DAY <30MIN MARLIN CAGLE CNM Sep 19, 2024 16:10
[2024-09-19 19:00] VITALS: BP 112/75; PULSE 73; RESP 18; TEMP 97.9; O2SAT 97
[2024-09-19] MEDS: DOCUSATE SOD 100 MG CAP PO SCH (22:10)
[2024-09-19 23:12] VITALS: BP 110/62; PULSE 62; RESP 16; TEMP 98.2; O2SAT 98
--- NOTE | 2024-09-20 00:51 | DVHDS2 ---
Obstetrics Discharge Summary Obstetrics Discharge Summary Date of Admission: Sep 17, 2024 Date of Discharge: Sep 20, 2024 Reason For Admission: Induction of Labor (oligo and suspected IUGR) Procedures: NST, Ultrasound, Mgmt of Obstetrics Compli Intrapartum Procedures: Spontaneous vaginal deliv Procedures: Hct/date: (09/19/24), Hgb/date: (09/19/24) Operative Complicat: None Discharge Diagnosis: Delivery Discharge Information: Activity (as tolerated, no heavy lifting and nothing in the vagina for 6 weeks), Diet (Routine), Medications (rx sent), Instructions (Routine), Discharge to (Home), Accompanied by (partner), Discarge date (09/08 10/30) Visit Coding OBGYN Date of Service: Sep 20, 2024 Billing Provider: MARLIN CAGLE CNM POULTICE MACHINE OPERATOR Common Visit Codes: 12718-GUV/OBS DISCH DAY <30MIN MARLIN CAGLE CNM Sep 20, 2024 00:51
--- NOTE | 2024-09-20 00:58 | DVHPN2 ---
Progress Note Date Seen: Sep 20, 2024 Subjective S: bleeding is less, eating food without issues, denies lightheaded/dizziness, pain well controlled with oral medications, no concerns with urinating, passing flatus, no BM yet, ambulating well, well vital signs Vital Sign Date Time Temp Pulse Resp B/P (MAP) Pulse Ox O2 Delivery O2 Flow Rate FiO2 09/19/24 23:12 98.2 62 16 110/62 (78) 98 98.2 09/19/24 19:00 Room Air medications Current Medications Medications Dose Ordered Sig/Shaw Route Start Time Stop Time Status Last Admin Dose Admin Dee Larissa 1 pad PRN PRN TOP 09/17/24 20:15 09/18/24 13:29 1 PAD Sodium Lauryl Sulfate 240 ml PRN PRN TOP 09/17/24 20:15 09/18/24 13:29 240 ML Benzocaine 1 applic PRN PRN TOP 09/17/24 20:15 09/18/24 13:29 1 APPLIC Methylergonovine Maleate 0.2 mg Q8HP PRN IM 09/18/24 06:30 09/20/24 06:29 09/18/24 13:20 0.2 MG Ibuprofen 600 mg Q6HP PRN PO 09/18/24 13:30 09/18/24 14:03 600 MG Acetaminophen 650 mg Q4HP PRN PO 09/18/24 13:30 Docusate Sodium 200 mg HS PO 09/18/24 22:00 09/19/24 22:10 200 MG Prenat Multivit/ Hospital Technician/Iron/Folic Ac 1 DAILY PO 09/19/24 10:00 laboratory and microbiology Laboratory Tests 09/19/24 08:23 09/17/24 16:19 Test 09/17/24 16:19 Range/Units Serum Glucose 87 74-106 mg/dL Objective O: VSS Chest: heart sounds normal and lung sounds clear bilaterally Abd: soft, non-tender, fundus at U/firm/midline, active bowel sounds, no rebound or guarding Perineum: intact, no erythema/edema noted Ext: Non-tender, No edema, 2+ BLE DTRs Lochia: minimal See lab results Problems(with codes): (1) (normal spontaneous vaginal delivery) (2) Intact perineum Assessment/Plan A: 39yo now PPD#2 s/p Anemia Rh+ Rubella Immune P: D/C home today Rx sent to pharmacy precautions and preeclampsia warning signs reviewed F/U with [facility] OB office in 2 weeks Plan discussed with: Patient, Spouse Visit Coding OBGYN Date of Service: Sep 20, 2024 Billing Provider: MARLIN CAGLE CNM EDUCATIONAL INTERPRETER Common Visit Codes: 12597-GMS/OBS DISCH DAY <30MIN MARLIN CAGLE CNM Sep 20, 2024 00:58
[2024-09-20 03:09] VITALS: BP 107/67; PULSE 68; RESP 16; TEMP 98.2; O2SAT 96
[2024-09-20 07:30] VITALS: BP 96/57; PULSE 71; RESP 16; TEMP 98.7; O2SAT 97
[2024-09-20 15:20] VITALS: BP 112/74; PULSE 79; RESP 15; TEMP 98.9
[2024-09-20 18:40] VITALS: BP 113/72; PULSE 85; RESP 16; TEMP 98.3; O2SAT 98
[2024-09-20 19:40] VITALS: BP 113/72; PULSE 94; RESP 16; TEMP 98; O2SAT 98
[2024-09-21 11:07] LABS: Treponema Pallidum Ab LC Non Reactive (Non Reactive)
== END 2024-09-20 19:40 | disposition home or self-care (01) | DRG 560 ==
LOC: LDRP 14:25
PROVIDERS: ADMIT Obstetrics & Gynecology; ATTEND Obstetrics & Gynecology
PROC: 3E033VJ Introduction of Other Hormone into Peripheral Vein, Percutaneous Approach (ICD-10-PCS; 2024-09-17)
PROC: 10E0XZZ Delivery of Products of Conception, External Approach (ICD-10-PCS; principal; 2024-09-18)
DX: O99.02 Anemia complicating childbirth (principal); O41.03X0 Oligohydramnios, third trimester, not applicable or unspecified; Z37.0 Single live birth; O60.14X0 Preterm labor third trimester with preterm delivery third trimester, not applicable or unspecified; Z3A.36 36 weeks gestation of pregnancy
CPT/HCPCS: 36415; 59025; 59409; 76805; 76815; 80053; 80307; 81001; 85025; 85610; 85730; 86592; 86780; 86803; 86850; 86870; 86900; 86901; 86902; 86922; 94760; 94762; 96360; 96361; 96366; 96372; G0378; J2540; J2590; J7060